=== PATIENT | female | born 2000 | race Two or more races ===

== ENCOUNTER 2021-01-14 16:52 | Emergency (ER) | payer SELFPAY ==
[~2021-01-14] VITALS: Ht 157.5 cm; Wt 99.8 kg
[2021-01-14 17:08] VITALS: BP 128/63
[2021-01-14] MEDS ORDERED: ACETAMINOPHEN 325 MG TAB PO ONE (17:15)
[2021-01-14 17:53] LABS: Urine Bacteria NONE SEEN /hpf (None Seen); Urine Blood Negative /uL (Negative); Urine Mucus MANY (None Seen); Urine Specific Gravity 1.027 (1.001-1.035); Urine WBC 10 /hpf (0 - 5)
== END 2021-01-14 20:27 | disposition left against medical advice (07) ==
LOC: ER 16:52
DX: R68.84 Jaw pain (principal); Z53.21 Procedure and treatment not carried out due to patient leaving prior to being seen by health care provider
CPT/HCPCS: 81001; 81025

== ENCOUNTER 2024-03-06 07:02 | Emergency (ER) | payer MEDICAID, OTHER ==
[~2024-03-06] VITALS: Ht 154.9 cm; Wt 130.4 kg
[2024-03-06 09:10] LABS: Basophils # (auto) 0 10 ^3/uL (0-0.2); Basophils % (auto) 0.6 % (0.0-2.0); Eosinophils # (auto) 0.2 10 ^3/uL (0-0.8); Eosinophils % (auto) 2.6 % (0.0-7.0); Hemoglobin 12.8 g/dL (12.2-16.2); Lymphocytes # (auto) 1.7 10 ^3/uL (0.4-5.4); Lymphocytes % (auto) 24.7 % (10.0-50.0); Mean Corpuscular Hgb Conc. 32.8 g/dL (32.0-36.0); Mean Corpuscular Volume 76.3 fL (80.0-100.0); Monocytes # (auto) 0.4 10 ^3/uL (0-1.3); Monocytes % (auto) 5.8 % (0.0-12.0); Neutrophils # (auto) 4.4 10 ^3/uL (1.6-8.6); Neutrophils % (auto) 66.3 % (37.0-80.0); Nucleated Red Blood Cells % 0.1 %; Platelet Count (auto) 355 10^3/uL (140-450); Red Blood Cells 5.11 10^6/uL (4.0-5.20); Red Cell Distribution Width 16.3 % (11.8-14.3); White Blood Cell 6.7 10^3/uL (4.4-10.8)
[2024-03-06 09:15] LABS: Chloride 106 mmol/L (98-107); Potassium 4.2 mmol/L (3.5-5.1); Sodium 139 mmol/L (136-145)
[2024-03-06 09:16] LABS: Anion Gap 5 (5-15); Calcium 9.2 mg/dL (8.7-10.4); Carbon Dioxide 28 mmol/L (20-30)
[2024-03-06 09:19] LABS: Urine Bacteria None Seen /hpf (None Seen)
[2024-03-06 09:21] LABS: Blood Urea Nitrogen 9 mg/dL (9-23); Glucose 108 mg/dL (74-106)
[2024-03-06] MEDS: ONDANSETRON ODT 4 MG TAB PO ONE (09:25)
[2024-03-06 09:27] LABS: Urine Blood Negative /uL (Negative); Urine Clarity Clear (Clear); Urine Color Light-Yellow (Yellow); Urine Mucus FEW (None Seen); Urine Protein, UAD Negative (Negative); Urine Specific Gravity 1.024 (1.001-1.035); Urine Urobilinogen Normal (Negative); Urine WBC 2 /hpf (0 - 5)
[2024-03-06 09:29] VITALS: BP 142/92; PULSE 82; RESP 16; TEMP 97.9; O2SAT 98
[2024-03-06] MEDS ORDERED: ZOFR4T PO (10:09)
== END 2024-03-06 10:12 | disposition home or self-care (01) ==
LOC: ER 07:02
DX: R11.2 Nausea with vomiting, unspecified (principal); R10.2 Pelvic and perineal pain; R10.11 Right upper quadrant pain
CPT/HCPCS: 36415; 76705; 80048; 81001; 81025; 84702; 85025; 99284; Q0162

== ENCOUNTER 2024-04-15 00:43 | Emergency (ER) | payer MEDICAID ==
[~2024-04-15] VITALS: Ht 154.9 cm; Wt 130.0 kg
[~2024-04-15 00:43] MED LIST: ZOFR4T PO
[2024-04-15 01:20] LABS: Urine Bacteria None Seen /hpf (None Seen)
[2024-04-15 01:25] LABS: Urine Blood Negative /uL (Negative); Urine Clarity Turbid (Clear); Urine Color Light-Yellow (Yellow); Urine Mucus FEW (None Seen); Urine Protein, UAD TRACE (Negative); Urine Specific Gravity 1.028 (1.001-1.035); Urine Urobilinogen 2 mg/dL (Negative); Urine WBC 11 /hpf (0 - 5); Urine pH 7.5 (5.0-9.0)
[2024-04-15 01:28] LABS: Basophils # (auto) 0.1 10 ^3/uL (0-0.2); Eosinophils # (auto) 0.2 10 ^3/uL (0-0.8); Lymphocytes # (auto) 2.6 10 ^3/uL (0.4-5.4); Mean Corpuscular Hemoglobin 24.8 pg (28.0-32.0); Monocytes # (auto) 0.6 10 ^3/uL (0-1.3); Nucleated Red Blood Cells % 0.1 %; White Blood Cell 8.6 10^3/uL (4.4-10.8)
[2024-04-15 01:30] LABS: Basophils % (auto) 1.3 % (0.0-2.0); Eosinophils % (auto) 2.8 % (0.0-7.0); Hematocrit 38.1 % (36.0-46.0); Hemoglobin 12.4 g/dL (12.2-16.2); Lymphocytes % (auto) 30.3 % (10.0-50.0); Mean Corpuscular Hgb Conc. 32.5 g/dL (32.0-36.0); Mean Corpuscular Volume 76.4 fL (80.0-100.0); Neutrophils % (auto) 58.6 % (37.0-80.0); Platelet Count (auto) 335 10^3/uL (140-450); Red Blood Cells 4.99 10^6/uL (4.0-5.20); Red Cell Distribution Width 16.5 % (11.8-14.3)
[2024-04-15 01:46] LABS: Alanine Aminotransferase 52 U/L (7-40); Albumin 4.5 g/dL (3.2-4.8); Alkaline Phosphatase 133 U/L (46-116); Anion Gap 4 (5-15); Aspartate Aminotransferase 38 U/L (13-40); BUN/Creatinine Ratio 12.1 (10.0-20.0); Bilirubin, Total 0.3 mg/dL (0.2-1.0); Blood Urea Nitrogen 8 mg/dL (9-23); Calcium 9.5 mg/dL (8.7-10.4); Carbon Dioxide 28 mmol/L (20-31); Chloride 107 mmol/L (98-107); Glucose 90 mg/dL (74-106); Lipase 41 U/L (12-53); Potassium 3.7 mmol/L (3.5-5.1); Sodium 139 mmol/L (136-145); Total Protein 7.4 g/dL (5.7-8.2)
[2024-04-15 03:30] VITALS: BP 138/73; PULSE 74; RESP 14; TEMP 97.9; O2SAT 99
[2024-04-15] MEDS: DICYCLOMINE HCL (10MG/ML) 2 ML AMPULE IM ONE (03:39)
[2024-04-15] MEDS: ONDANSETRON HCL 4 MG/2 ML VIAL IV ONE (03:39)
[2024-04-15] MEDS: SODIUM CHLORIDE 0.9% 1,000 ML IV ONE (03:39)
[2024-04-15] MEDS ORDERED: BISA-13 PO (04:26)
[2024-04-15] MEDS ORDERED: CEPH500C PO (04:26)
[2024-04-15] MEDS ORDERED: DICY10CA PO (04:26)
[2024-04-15] MEDS ORDERED: ZOFR4T PO (04:26)
[2024-04-15] MEDS: cefTRIAXone 1GM/50ML D5W 50 ML IV ONE (04:33)
== END 2024-04-15 05:43 | disposition home or self-care (01) ==
LOC: ER 00:43
DX: N39.0 Urinary tract infection, site not specified (principal); R10.2 Pelvic and perineal pain; K59.00 Constipation, unspecified; R10.10 Upper abdominal pain, unspecified; J45.909 Unspecified asthma, uncomplicated
CPT/HCPCS: 36415; 74176; 80053; 81001; 83690; 84702; 85025; 96361; 96365; 96372; 96375; 99285; J0500; J0696; J2405; J7030